=== PATIENT | male | born 1960 | race Asian ===

== ENCOUNTER 2016-11-24 07:13 | Emergency (ER) | payer OTHER ==
[~2016-11-24] VITALS: Ht 162.6 cm; Wt 65.0 kg
[2016-11-24 08:48] VITALS: BP 120/79
== END 2016-11-24 09:07 | disposition home or self-care (01) ==
LOC: ED 08:35
DX: S00.33XA Contusion of nose, initial encounter (principal); S00.531A Contusion of lip, initial encounter; X58.XXXA Exposure to other specified factors, initial encounter; Y93.89 Activity, other specified; Y92.002 Bathroom of unspecified non-institutional (private) residence as the place of occurrence of the external cause; Y99.8 Other external cause status
CPT/HCPCS: 70486; 93005